=== PATIENT | female | born 1955 | race Caucasian/White ===

== ENCOUNTER 2018-11-27 21:20 | Emergency (ER) | payer OTHER ==
[2018-11-27 21:35] VITALS: TEMP 96.8
--- NOTE | 2018-11-27 22:03 | RAD ---
EXAM DESCRIPTION: Hip,Right 2 Views CLINICAL HISTORY: Knee pain COMPARISON: None FINDINGS: Two x-ray views of the right hip were submitted. There is no acute fracture or dislocation. Bone mineralization is within normal limits. There is no radiopaque foreign body material. IMPRESSION: No acute fracture or dislocation. Electronically signed by: Dimitri Delvalle MD 11/27/2018 10:02 PM CDT
--- NOTE | 2018-11-27 22:04 | RAD ---
EXAM DESCRIPTION: Knee,Right Complete CLINICAL HISTORY: rt knee pain, x1week COMPARISON: None FINDINGS: Three x-ray views of the right knee were submitted. There is osteophytic formation more pronounced at the patellofemoral compartment and lateral knee compartment. There is no acute fracture or dislocation. Bone mineralization is within normal limits. There is no radiopaque foreign body material. IMPRESSION: No acute fracture or dislocation. Electronically signed by: Dimitri Delvalle MD 11/27/2018 10:03 PM CDT
[2018-11-27 22:26] VITALS: BP 133/70; O2SAT 97
--- NOTE | 2018-11-27 22:33 | ED.PDOC ---
History of Present Illness - General Chief Complaint: Lower Extremity Injury Stated Complaint: knee pain Time Seen by Provider: 11/27/18 22:14 Source: patient Exam Limitations: no limitations - History of Present Illness Initial Comments: Patient presents with pain in the right popliteal fossa for two days. It is constant and throbbing, non-radiating, worse with movement, better with rest, no previous episodes. Patient denies falls or trauma. No history of DVT. No calf swelling or pain. No other complaints. Timing/Duration: other - 2 days Severity: mild Improving Factors: rest Worsening Factors: movement Associated Symptoms: denies symptoms Allergies/Adverse Reactions: Allergies NO KNOWN ALLERGY Allergy (Verified 11/27/18 21:33) Review of Systems - Review of Systems Constitutional: States: no symptoms reported EENTM: States: no symptoms reported Respiratory: States: no symptoms reported Cardiology: States: no symptoms reported Gastrointestinal/Abdominal: States: no symptoms reported Genitourinary: States: no symptoms reported Musculoskeletal: States: see HPI Skin: States: no symptoms reported Neurological: States: no symptoms reported Endocrine: States: no symptoms reported Hematologic/Lymphatic: States: no symptoms reported Past Medical History (General) - Patient Medical History Hx Seizures: No Hx Stroke: No Hx Dementia: No Hx Asthma: No Hx of COPD: No Hx Cardiac Disorders: No Hx Congestive Heart Failure: No Hx Pacemaker: No Hx Hypertension: Yes Hx Thyroid Disease: No Hx Diabetes: No Hx Gastroesophageal Reflux: No Hx Renal Disease: No Hx Cancer: No Hx of HIV: No Hx Hepatitis C: No Surgical History: Hysterectomy - Vaccination History Hx Tetanus, Diphtheria Vaccination: No Hx Influenza Vaccination: No Hx Pneumococcal Vaccination: No - Social History Hx Alcohol Use: Yes - occ Family Medical History - Family History Father Living Status: Unknown Hx Cardiac Disease: Yes Physical Exam - Physical Exam General Appearance: Alert Respiratory: lungs clear, normal breath sounds Cardiovascular/Chest: normal peripheral pulses, regular rate, rhythm, no edema Gastrointestinal/Abdominal: normal bowel sounds, non tender, soft Extremity: other - No edema. calves are NTTP. There is a palpable mass in the right popliteal fossa that is felt best with the leg extended. Mass disappears with full flexion. It is TTP. Progress - Progress Progress: 11/27/18 22:34 Radiographs of the right hip and right knee showed no dislocation, bony abnormality, nor fracture. Likely a Popliteal cyst. There is no calf swelling nor tenderness nor risk factors for DVT. Patient given Toradol 30 mg IM x one and care instructions. Departure - Departure Clinical Impression: Popliteal cyst Disposition: Discharge to Home or Self Care Condition: Good Departure Forms: ED Discharge - Pt. Copy, Patient Portal Self Enrollment Instructions: Jarvis's Cyst (DC) Diet: resume usual diet Activity: increase activity as tolerated Additional Instructions: See your regular doctor regarding the possibility of joint injection or surgical removal of the cyst. Return to the E.R. immediately for increased pain , swelling of the right lower leg, calf, ankle, or foot, chest pain, or shortness of breath.
[2018-11-27] MEDS: KETOROLAC TROMETHAMINE INJ 30 MG/ML VIAL IM ONE (22:44)
== END 2018-11-27 22:42 | disposition home or self-care (01) ==
LOC: ER 21:20
DX: M71.21 Synovial cyst of popliteal space [Baker], right knee (principal); I10 Essential (primary) hypertension
CPT/HCPCS: 73502; 73562; J1885